=== PATIENT | female | born 1930 | race Caucasian/White ===

== ENCOUNTER 2017-07-14 23:14 | Emergency (ER) | payer MEDICARE, BC ==
[~2017-07-14] VITALS: Ht 170.2 cm; Wt 61.0 kg
[~2017-07-14 23:14] MED LIST: ALPR.25 PO; ASPI81 PO; BENI40TA30 PO; CARV3.12 PO; HYDR-2768 PO; ISOS30TA3 PO; SYNT88TA PO
[2017-07-14 23:24] VITALS: BP 118/58; PULSE 79; RESP 18; TEMP 99.1; O2SAT 97
--- NOTE | 2017-07-15 00:54 | PD ---
HPI Chief Complaint: Edema Time Seen by Provider: 23:56 Travel History International Travel<30 days: No Contact w/Intl Traveler<30days: No Traveled to known affect area: No History of Present Illness HPI 86-year-old female complains of swelling in the right leg. She underwent right hip arthroplasty revision 5 days prior. She was discharged 3 days prior. She went home feeling well however 2 days thereafter developed increasing paresthesias in bilateral lower extremities. She applied some stockings which was helpful initially however the right lower leg began to swell. She has no history of DVT. He takes no anticoagulation. Onset gradual. Timing constant. No shortness of breath. Patient reports she has a hip mobilization/bracing device with a Velcro strap just proximal knee which she loosened and reports improved symptoms thereafter. PFSH Past Medical History High Cholesterol: Yes Diminished Hearing: No Hypertension: Yes Thyroid Disease: Yes (hypothyroidism) Tetanus Vaccination: Unknown Influenza Vaccination: No Menopausal: Yes Past Surgical History Other Surgery: Yes (right hip revision) Social History Alcohol Use: No Tobacco Use: No Substance Use: No Allergies-Medications (Allergen,Severity, Reaction): Coded Allergies: No Known Allergies (Verified Adverse Reaction, Unknown, 07/14/17) Reported Meds & Prescriptions Reported Meds & Active Scripts Active Xanax 0.25 Mg Tab (Alprazolam) 0.25 Mg Tab 0.125 Mg PO TIDPRN Reported Hctz (Hydrochlorothiazide) 25 Mg Tab 25 Mg PO DAILY Aspirin 81 Mg Tab 81 Mg PO DAILY Isosorbide Mononitrate Er (Isosorbide Mononitrate) 30 Mg Tab 30 Mg PO DAILY Carvedilol 3.125 Mg Tab 3.12 Mg PO BID Synthroid (Levothyroxine Sodium) 88 Mcg Tab 75 Mcg PO DAILY Benicar (Olmesartan) 40 Mg Tab 40 Mg PO DAILY Review of Systems Except as stated in HPI: all other systems reviewed are Neg General / Constitutional: No: Fever Physical Exam Narrative GENERAL: 86-year-old female pleasant well-nourished well-developed no acute distress Vital Signs Date Time Temp Pulse Resp B/P (MAP) Pulse Ox O2 Delivery O2 Flow Rate FiO2 07/14/17 23:24 99.1 79 18 118/58 (78) 97 SKIN: Warm and dry. HEAD: Atraumatic. Normocephalic. EYES: Pupils equal and round. No scleral icterus. No injection or drainage. ENT: No nasal bleeding or discharge. Mucous membranes pink and moist. NECK: Trachea midline. No JVD. CARDIOVASCULAR: Regular rate and rhythm. RESPIRATORY: No accessory muscle use. Clear to auscultation. Breath sounds equal bilaterally. GASTROINTESTINAL: Abdomen soft, non-tender, nondistended. Hepatic and splenic margins not palpable. MUSCULOSKELETAL: Trace edema of the right lower leg below the knee. There is a hip brace present with a wraparound Velcro strap just proximal to the knee which has been loosened. NEUROLOGICAL: Awake and alert. No obvious cranial nerve deficits. Motor grossly within normal limits. Five out of 5 muscle strength in the arms and legs. Normal speech. PSYCHIATRIC: Appropriate mood and affect; insight and judgment normal. Data Data Last Documented VS Vital Signs Date Time Temp Pulse Resp B/P (MAP) Pulse Ox O2 Delivery O2 Flow Rate FiO2 07/14/17 23:24 99.1 79 18 118/58 (78) 97 Orders Orders Us Leg Venous Doppler Bilat (07/15/17 ) Ed Discharge Order (07/15/17 01:54) MDM Medical Decision Making Medical Screen Exam Complete: Yes Emergency Medical Condition: Yes Medical Record Reviewed: Yes Differential Diagnosis Cellulitis, DVT, edema from compression Narrative Course DVT studies negative The swelling is likely due to the brace. We discussed adjusting and the patient is agreeable to plan Diagnosis Primary Impression: Leg edema, right Referrals: Orthopaedic Surgeon Primary Care Physician Med/Other Pt SpecificInfo: No Change to Meds Disposition: 01 DISCHARGE HOME Condition: Stable Adrian Echeverria MD July 15, 2017 00:54
--- NOTE | 2017-07-15 01:33 | RADRPT ---
EXAM DATE/TIME: 07/15/2017 00:43 [place] COMPARISON: No previous studies available for comparison. INDICATIONS : Right leg swelling s/p right hip surgery on Saturday. MEDICAL HISTORY : Hypertension. Hypercholesterolemia. Hypothyroidism. SURGICAL HISTORY : Right total hip replacement 1992. Right hip revision in 2007 and 2017. Back surgery. ENCOUNTER: Initial ACUITY: 4 - 6 days PAIN SCORE: 2/10 LOCATION: Bilateral legs. TECHNIQUE: Venous ultrasound of the left and right leg was performed from the inguinal ligament to the proximal calf. Real-time, color Doppler and spectral tracing, compression and augmentation techniques were us ed. FINDINGS: RIGHT LEG: There is normal compressibility of the deep venous system from the inguinal region to the proximal ca lf. No echogenic clot is seen in the lumen of the common femoral, femoral, popliteal, and posterior tibial veins. There is a normal response of the venous system to proximal and distal augmentation an d respiration. LEFT LEG: There is normal compressibility of the deep venous system from the inguinal region to the proximal ca lf. No echogenic clot is seen in the lumen of the common femoral, femoral, popliteal, and posterior tibial veins. There is a normal response of the venous system to proximal and distal augmentation an d respiration. CONCLUSION: 1. Negative for deep venous thrombosis. Fernando Durham MD on July 15, 2017 at 1:30 Board Certified Radiologist. This report was verified electronically.
== END 2017-07-15 02:33 | disposition home or self-care (01) ==
LOC: NEPC 23:14
DX: R60.0 Localized edema (principal); R20.2 Paresthesia of skin; I10 Essential (primary) hypertension; E03.9 Hypothyroidism, unspecified; E78.00 Pure hypercholesterolemia, unspecified; Z98.890 Other specified postprocedural states
CPT/HCPCS: 93970; 99284

== ENCOUNTER 2018-01-12 10:20 | Observation (INO) ==
[2018-01-12 11:16] LABS: Baso % (Auto) 0.3 % (0.0-2.0); Eos # (Auto) 0.1 th/mm3 (0.0-0.4); Eos % (Auto) 1.7 % (0.0-4.0); Hemoglobin 13.4 gm/dL (11.6-15.3); Lymph # (Auto) 1.7 th/mm3 (1.0-4.8); Lymph % (Auto) 28.9 % (9.0-44.0); Mean Corpuscular HGB Conc 33.6 % (32.0-36.0); Mean Corpuscular Hemoglobin 29.7 pg (27.0-34.0); Mean Corpuscular Volume 88.4 fL (80.0-100.0); Mean Platelet Volume 7.8 fL (7.0-11.0); Mono # (Auto) 0.5 th/mm3 (0.0-0.9); Neut # (Auto) 3.6 th/mm3 (1.8-7.7); Neut % (Auto) 61.1 % (16.0-70.0); Platelet Count 254 th/mm3 (150-450); Red Blood Count 4.52 mil/mm3 (4.00-5.30); White Blood Count 5.8 th/mm3 (4.0-11.0)
[2018-01-12] MEDS ORDERED: Aspirin 325 MG Tablet PO ONE (11:17)
--- NOTE | 2018-01-12 11:32 | XR ---
EXAM DATE: 01/12/2018 11:29 AM EST AGE/SEX: 87 years / Female INDICATIONS: Cough. Congestion. CLINICAL DATA: This is the patient's initial encounter. Patient reports that signs and symptoms have been present for 3 days and indicates a pain score of 5/10. MEDICAL/SURGICAL HISTORY: None. None. COMPARISON: POI, XR CHEST PA AND LAT, 09/08/2015. . FINDINGS: A single AP view of the chest demonstrates the lungs to be symmetrically aerated without evidence of mass, infiltrate or effusion. The cardiomediastinal contours are unremarkable. Osseous structures d emonstrate chronic arthropathic changes of the right glenohumeral joint. CONCLUSION: Clear lungs. Electronically signed by: Laurent Hammer MD 01/12/2018 11:30 AM EST
[2018-01-12 11:33] LABS: Albumin 3.7 g/dL (3.4-5.0); Anion Gap 8 meq/L (5-15); Aspartate Aminotransferase 20 U/L (15-37); Blood Urea Nitrogen 14 mg/dL (7-18); Calcium 8.6 mg/dL (8.5-10.1); Carbon Dioxide 23.8 meq/L (21.0-32.0); Chloride 102 meq/L (98-107); Glomerular Filtration Rate 83 mL/min (>89); Glucose,Random 93 mg/dL (74-106); Potassium 4.4 meq/L (3.5-5.1); Sodium 134 meq/L (136-145)
[2018-01-12 11:34] LABS: Alanine Aminotransferase 24 U/L (10-53)
--- NOTE | 2018-01-12 11:34 | ED ---
HPI General Chief Complaint: Chest Pain Stated Complaint: chest pain Time Seen by Provider: 01/12/18 11:08 Source: patient and family Mode of arrival: ambulatory Limitations: no limitations History of Present Illness HPI narrative: 87-year-old female that presents to the ED for evaluation of chest pain. Patient reports that she has had chest pain since yesterday. Per patient yesterday was on and off. Per patient today got more constant which is what prompted her evaluation. Patient denies any injuries. Per patient he does follow with a warp preparer and she gets frequent follow-ups with them. Denies any urinary or bowel movement issues. No fevers chills or sweats. States having some congestion but that has been ongoing for some time. Per patient the pain when he comes is 3 out of 10 and feels more like a pressure. Currently she has no pain. Per patient when he comes it lasts for a couple of minutes and then goes away. She states that the last surgery she had was in July. She takes aspirin daily but has not taken one today. She was concerned because the pain is not getting better and seems to be becoming more frequent. Related Data Home Medications Medication Instructions Recorded Confirmed alprazolam [Xanax] 0.25 mg PO DAILY PRN 01/12/18 01/12/18 amlodipine [Norvasc] 2.5 mg PO DAILY 01/12/18 01/12/18 aspirin 81 mg PO DAILY 01/12/18 01/12/18 isosorbide mononitrate 30 mg PO DAILY 01/12/18 01/12/18 levothyroxine [Synthroid] 75 mcg PO DAILY 01/12/18 01/12/18 Allergies Allergy/AdvReac Type Severity Reaction Status Date / Time No Known Allergies Allergy Verified 01/12/18 10:30 Review of Systems ROS: all other systems reviewed are negative [facility] Medical History Medical History Anxiety (Acute) HBP (high blood pressure) (Acute) Hypothyroidism (Acute) Surgical History Surgical History History of back surgery (Acute) History of hip surgery (Acute) Social History Social History Substance History: No History of Abuse Second Hand Smoke Exposure: No Smoking Status: Never smoker How Often Do You Have a Drink Containing Alcohol: Never Recent Travel in [facility] within the Last 8 Weeks: No Recent Out of Country Travel within the Last 8 Weeks: No Immunization History Tetanus Immunization: >5 Years Exam Narrative Exam Narrative: GENERAL: Well appearing SKIN: Focused skin assessment warm/dry. HEAD: Atraumatic. Normocephalic. EYES: Pupils equal and round. No scleral icterus. No injection or drainage. ENT: No nasal bleeding or discharge. Mucous membranes pink and moist. Tongue is midline. No uvula deviation. NECK: Trachea midline. No JVD. CARDIOVASCULAR: Regular rate and rhythm. No murmur appreciated. RESPIRATORY: No accessory muscle use. Clear to auscultation. Breath sounds equal bilaterally. GASTROINTESTINAL: Abdomen soft, non-tender, nondistended. Hepatic and splenic margins not palpable. MUSCULOSKELETAL: No obvious deformities. No clubbing. No cyanosis. No edema. Full range of motion of the upper and lower extremities bilaterally. 2+ pulses bilaterally. NEUROLOGICAL: Awake and alert. No obvious cranial nerve deficits. Motor grossly within normal limits. Normal speech. PSYCHIATRIC: Appropriate mood and affect; insight and judgment normal. Course Initial Documented Vital Signs Temperature 98.0 F 01/12/18 10:24 Pulse Rate 77 01/12/18 10:24 Respiratory Rate 18 01/12/18 10:24 Blood Pressure 173/82 H 01/12/18 10:24 Pulse Oximetry 96 01/12/18 10:24 Last Documented Vital Signs Temperature 97.7 F 01/12/18 12:22 Pulse Rate 69 01/12/18 12:22 Respiratory Rate 16 01/12/18 12:22 Blood Pressure 102/60 01/12/18 12:22 Pulse Oximetry 98 01/12/18 12:22 Medical Decision Making JESUS Attestation JESUS supervised visit: Yes Attestation: I, Dr. Brower, have reviewed the advance practice practitioner's documentation and am in agreement, met with the patient face to face, made the diagnosis, and the medical decision making was done by me. *My assessment and Findings: Patient is an 87-year-old female who presented with complaint of chest pain. She states she has not had any chest pains and she was given aspirin. EKG does not show any ST segment elevation or depression at this time. Labs including initial troponin are unremarkable. She has been admitted for serial EKGs and troponins. MDM Narrative Medical decision making narrative: 87-year-old female that presents to the ED for evaluation of chest pain. Patient was properly examined and was found to have signs and symptoms consistent with appears to be concerning for ACS. Patient was given aspirin. Labs and imaging ordered. Labs and imaging showed no sign of acute disease. This time recommendations admission to chest pain center for chest pain center rule out. Patient agrees. Patient was admitted to chest pain center. Medical Screen Exam Complete: Yes Emergency Medical Condition: Yes Differential Diagnosis Differential Diagnosis: Chest pain versus atypical chest pain versus ACS versus NSTEMI Medical Records Medical records reviewed: Yes I reviewed the patient's medical records. Lab Data Lab results reviewed: Yes I reviewed the patient's lab results. Result diagrams: 01/12/18 11:00 01/12/18 11:00 Lab Results 01/12/18 01/12/18 01/12/18 Range/Units 11:00 11:00 11:00 WBC 5.8 (4.0-11.0) th/mm3 RBC 4.52 (4.00-5.30) mil/mm3 Hgb 13.4 (11.6-15.3) gm/dL Hct 40.0 (35.0-46.0) % MCV 88.4 (80.0-100.0) fL MCH 29.7 (27.0-34.0) pg MCHC 33.6 (32.0-36.0) % RDW 16.0 (11.6-17.2) % Plt Count 254 (150-450) th/mm3 MPV 7.8 (7.0-11.0) fL Neut % (Auto) 61.1 (16.0-70.0) % Lymph % (Auto) 28.9 (9.0-44.0) % Ellis % (Auto) 8.0 (0.0-8.0) % Eos % (Auto) 1.7 (0.0-4.0) % Baso % (Auto) 0.3 (0.0-2.0) % Neut # (Auto) 3.6 (1.8-7.7) th/mm3 Lymph # (Auto) 1.7 (1.0-4.8) th/mm3 Ellis # (Auto) 0.5 (0.0-0.9) th/mm3 Eos # (Auto) 0.1 (0.0-0.4) th/mm3 Baso # (Auto) 0.0 (0.0-0.2) th/mm3 WBC Differential . Differential Comment Auto diff final PT (9.8-11.6) sec INR Ratio APTT (23.4-31.7) sec Sodium 134 L (136-145) meq/L Potassium 4.4 (3.5-5.1) meq/L Chloride 102 (98-107) meq/L Carbon Dioxide 23.8 (21.0-32.0) meq/L Anion Gap 8 (5-15) meq/L BUN 14 (7-18) mg/dL Creatinine 0.67 (0.50-1.00) mg/dL Estimated GFR 83 L (>89) mL/min Random Glucose 93 (74-106) mg/dL Calcium 8.6 (8.5-10.1) mg/dL Total Bilirubin 0.4 (0.2-1.0) mg/dL AST 20 (15-37) U/L ALT 24 (10-53) U/L Alkaline Phosphatase 142 H (45-117) U/L Total Creatine Kinase 106 (26-192) U/L CK-MB (CK-2) 2.1 (0.5-3.6) ng/mL Troponin I Less than 0.02 L (0.02-0.05) ng/mL Total Protein 7.5 (6.4-8.2) g/dL Albumin 3.7 (3.4-5.0) g/dL 01/12/18 Range/Units 11:35 WBC (4.0-11.0) th/mm3 RBC (4.00-5.30) mil/mm3 Hgb (11.6-15.3) gm/dL Hct (35.0-46.0) % MCV (80.0-100.0) fL MCH (27.0-34.0) pg MCHC (32.0-36.0) % RDW (11.6-17.2) % Plt Count (150-450) th/mm3 MPV (7.0-11.0) fL Neut % (Auto) (16.0-70.0) % Lymph % (Auto) (9.0-44.0) % Ellis % (Auto) (0.0-8.0) % Eos % (Auto) (0.0-4.0) % Baso % (Auto) (0.0-2.0) % Neut # (Auto) (1.8-7.7) th/mm3 Lymph # (Auto) (1.0-4.8) th/mm3 Ellis # (Auto) (0.0-0.9) th/mm3 Eos # (Auto) (0.0-0.4) th/mm3 Baso # (Auto) (0.0-0.2) th/mm3 WBC Differential Differential Comment PT 10.7 (9.8-11.6) sec INR 1.1 Ratio APTT 28.7 (23.4-31.7) sec Sodium (136-145) meq/L Potassium (3.5-5.1) meq/L Chloride (98-107) meq/L Carbon Dioxide (21.0-32.0) meq/L Anion Gap (5-15) meq/L BUN (7-18) mg/dL Creatinine (0.50-1.00) mg/dL Estimated GFR (>89) mL/min Random Glucose (74-106) mg/dL Calcium (8.5-10.1) mg/dL Total Bilirubin (0.2-1.0) mg/dL AST (15-37) U/L ALT (10-53) U/L Alkaline Phosphatase (45-117) U/L Total Creatine Kinase (26-192) U/L CK-MB (CK-2) (0.5-3.6) ng/mL Troponin I (0.02-0.05) ng/mL Total Protein (6.4-8.2) g/dL Albumin (3.4-5.0) g/dL Imaging Data Attestation: I personally reviewed and interpreted this imaging study as follows : Radiologist's impression: Chest X-Ray 01/12/18 11:04 CONCLUSION: Clear lungs. ECG Data Attestation: I personally reviewed and interpreted this ECG as follows: Interpretation: EKG shows sinus rhythm with no sign of acute ischemia and arrhythmia read by me and attending. Discharge Plan Discharge Disposition Patient Disposition: 30 Still Patient Discharge Condition Condition: Stable Discharge Details Diagnosis: Chest pain, rule out acute myocardial infarction Physicians Team ED Provider: Flavia Brower ED Midlevel Provider: Brad Finney Primary Care Provider: UNKNOWN, Attending Provider: Ghulam Romano Status ED Status: Admitted Observation Patient
[2018-01-12 11:38] LABS: Alkaline Phosphatase 142 U/L (45-117); Total Protein 7.5 g/dL (6.4-8.2)
[2018-01-12 12:11] LABS: Activated Partial Thrombo Time 28.7 sec (23.4-31.7); INR 1.1 Ratio; Prothrombin Time 10.7 sec (9.8-11.6)
--- NOTE | 2018-01-12 12:15 | ECG ---
Date Performed: 01/12/2018 Time Performed: 10:49:34 PTAGE: 87 years EKG: Sinus rhythm WITH FIRST DEGREE AV BLOCK WITH OCCASIONAL SUPRAVENTRICULAR PREMATURE COMPLEXES POSSIBLE ANTERIOR MY OCARDIAL INFARCTION INFERIOR MYOCARDIAL INFARCTION ABNORMAL ECG No significant change from prior elec trocardiogram. DOCTOR: Bassam Plunkett Interpretating Date/Time 01/12/2018 12:14:37
[2018-01-12 12:26] LABS: Creatine Kinase 106 U/L (26-192)
[2018-01-12 12:42] LABS: Creatine Kinase MB 2.1 ng/mL (0.5-3.6)
[2018-01-12] MEDS ORDERED: ALPRAZolam 0.25 MG Tablet PO PRN (13:34)
--- NOTE | 2018-01-12 13:34 | P.HPIM ---
History of Present Illness Primary Care Physician: UNKNOWN Chief Complaint: chest pain History of Present Illness: 87-year-old female that presents to the ED for evaluation of chest pain. Patient reports that she has had chest pain since yesterday. Per patient yesterday was on and off. Per patient today got more constant which is what prompted her evaluation. Patient denies any injuries. Per patient he does follow with a construction millwright and she gets frequent follow-ups with them. Denies any urinary or bowel movement issues. No fevers chills or sweats. States having some congestion but that has been ongoing for some time. Per patient the pain when he comes is 3 out of 10 and feels more like a pressure. Currently she has no pain. Per patient when he comes it lasts for a couple of minutes and then goes away. She states that the last surgery she had was in July. She takes aspirin daily but has not taken one today. She was concerned because the pain is not getting better and seems to be becoming more frequent. Dr Yost her cardiology wants the patient to be admitted and he will be consulted Review of Systems All other systems reviewed negative except as stated in HPI PMFSH - History History Provided By: Patient - Medical History Medical History: Medical History (Last Reviewed 01/12/18 @ 13:27 by Vaishali Yoon MD) Anxiety HBP (high blood pressure) Hypothyroidism - Surgical History Surgical History: Surgical History (Last Reviewed 01/12/18 @ 13:27 by Vaishali Yoon MD) History of back surgery History of hip surgery - Family History Family History: Family History (Last Updated 01/12/18 @ 15:56 by Vaishali Yoon MD) Mother Heart problem - Social History I have reviewed the patient's Social History: Yes - Tobacco History Second Hand Smoke Exposure: No Smoking Status: Never smoker - Alcohol History How Often Do You Have a Drink Containing Alcohol: Never - Substance Use History Substance History: No History of Abuse - Travel History Recent Travel in the [place] Within the Last 8 Weeks: No Recent Travel Out of the Country Within the Last 8 Weeks: No - Immunization History Tetanus Immunization: >5 Years Medications and Allergies Allergies Allergy/AdvReac Type Severity Reaction Status Date / Time No Known Allergies Allergy Verified 01/12/18 10:30 Home Medications Medication Instructions Recorded Confirmed Type alprazolam [Xanax] 0.25 mg PO DAILY PRN 01/12/18 01/12/18 History amlodipine [Norvasc] 2.5 mg PO DAILY 01/12/18 01/12/18 History aspirin 81 mg PO DAILY 01/12/18 01/12/18 History isosorbide mononitrate 30 mg PO DAILY 01/12/18 01/12/18 History levothyroxine [Synthroid] 75 mcg PO DAILY 01/12/18 01/12/18 History Exam Vital signs: Vital Signs 01/12/18 10:24 01/12/18 11:04 01/12/18 12:22 Temperature 98.0 F 97.7 F Pulse Rate 77 64 69 Respiratory Rate 18 16 Blood Pressure 173/82 H 102/60 Pulse Oximetry 96 98 98 Intake & Output 01/11/18 01/12/18 01/12/18 18:59 06:59 18:59 Weight 63.049 kg Narrative: GENERAL: Very pleasant 87 yo female, well nourished well developed patient, appears in nad. SKIN: Warm and dry. HEAD: Atraumatic. Normocephalic. EYES: Pupils equal and round. No scleral icterus. No injection or drainage. ENT: No nasal bleeding or discharge. Mucous membranes pink and moist. NECK: Trachea midline. No JVD. CARDIOVASCULAR: Regular rate and rhythm. RESPIRATORY: No accessory muscle use. Clear to auscultation. Breath sounds equal bilaterally. GASTROINTESTINAL: Abdomen soft, non-tender, nondistended. Hepatic and splenic margins not palpable. MUSCULOSKELETAL: Extremities without clubbing, cyanosis, or edema. No obvious deformities. NEUROLOGICAL: Awake and alert. No obvious cranial nerve deficits. Motor grossly within normal limits. Five out of 5 muscle strength in the arms and legs. Normal speech. PSYCHIATRIC: Appropriate mood and affect; insight and judgment normal. Results - Labs CBC & Chem 7: 01/12/18 11:00 01/12/18 11:00 Labs: Short CBC 01/12/18 Range/Units 11:00 WBC 5.8 (4.0-11.0) th/mm3 Hgb 13.4 (11.6-15.3) gm/dL Hct 40.0 (35.0-46.0) % Plt Count 254 (150-450) th/mm3 BMP 01/12/18 11:00 Sodium 134 L Potassium 4.4 Chloride 102 Carbon Dioxide 23.8 BUN 14 Creatinine 0.67 Calcium 8.6 Cardiac Enzymes 01/12/18 01/12/18 Range/Units 11:00 11:00 Total Creatine Kinase 106 (26-192) U/L CK-MB (CK-2) 2.1 (0.5-3.6) ng/mL Troponin I Less than 0.02 L (0.02-0.05) ng/mL Liver Function 01/12/18 Range/Units 11:00 Total Bilirubin 0.4 (0.2-1.0) mg/dL AST 20 (15-37) U/L ALT 24 (10-53) U/L Alkaline Phosphatase 142 H (45-117) U/L Albumin 3.7 (3.4-5.0) g/dL - Imaging Impressions Chest X-Ray 01/12/18 11:04 CONCLUSION: Clear lungs. Caprini VTE Risk Assessment Caprini VTE Risk Assessment: Moderate/High Risk (score >= 2) Caprini Risk Assessment Model: Point Value = 1 Point Value = 2 Point Value = 3 Point Value = 5 Age 41-60 Minor surgery BMI > 25 kg/m2 Swollen legs Varicose veins or History of unexplained or recurrent spontaneous Oral contraceptives or hormone replacement Sepsis (< 1 month) Serious lung disease, including pneumonia (< 1 month) Abnormal pulmonary function Acute myocardial infarction Congestive heart failure (< 1 month) History of inflammatory bowel disease Medical patient at bed rest Age 61-74 Arthroscopic surgery Major open surgery (> 45 min) Laparoscopic surgery (> 45 min) Malignancy Confined to bed (> 72 hours) Immobilizing plaster cast Central venous access Age >= 75 History of VTE Family history of VTE Factor V Leiden Prothrombin [id number] Lupus anticoagulant Anticardiolipin antibodies Elevated serum homocysteine Heparin-induced thrombocytopenia Other congenital or acquired thrombophilia Stroke (< 1 month) Elective arthroplasty Hip, pelvis, or leg fracture Acute spinal cord injury (< 1 month) Prophylaxis Regimen: Total Risk Factor Score Risk Level Prophylaxis Regimen 0-1 Low Early ambulation 2 Moderate Order ONE of the following: *Sequential Compression Device (SCD) *Heparin 5000 units SQ BID 3-4 Higher Order ONE of the following medications: *Heparin 5000 units SQ TID *Enoxaparin/Lovenox 40 mg SQ daily (WT < 150 kg, CrCl > 30 mL/min) *Enoxaparin/Lovenox 30 mg SQ daily (WT < 150 kg, CrCl > 10-29 mL/min) *Enoxaparin/Lovenox 30 mg SQ BID (WT < 150 kg, CrCl > 30 mL/min) AND/OR *Sequential Compression Device (SCD) 5 or more Highest Order ONE of the following medications: *Heparin 5000 units SQ TID (Preferred with Epidurals) *Enoxaparin/Lovenox 40 mg SQ daily (WT < 150 kg, CrCl > 30 mL/min) *Enoxaparin/Lovenox 30 mg SQ daily (WT < 150 kg, CrCl > 10-29 mL/min) *Enoxaparin/Lovenox 30 mg SQ BID (WT < 150 kg, CrCl > 30 mL/min) AND *Sequential Compression Device (SCD) Assessment and Plan - Plan Chest pain r/o ACS. Walter also has a h/o anxiety EKG shows sinus rhythm with no sign of acute ischemia or arrhythmia. Continue ASA, start metoprolol, continue amlodipine, imdur, losartan nitroglycerin SL as need for CP First trop is neg, will trend. Will repeat EKG Will monitor on telemetry. O 2 supplement as need , keep O2 sat >94% Will check lipid panel and also LFTs Consult her cardiology Dr Priyank Cheng continue alprazolam Hypothyroidism restart Synthroid, follows with her PCP and had recent labs Restart home meds as appropriate DVT ppx scd/teds/lovenox Discussed Condition With: the patient, family at bedside, nurse, ED physician /PA
[2018-01-12] MEDS ORDERED: Acetaminophen 500 MG Tablet PO PRN (13:36)
[2018-01-12] MEDS: Enoxaparin Inj 40 MG/0.4 ML Syringe SQ SCH (14:14)
[2018-01-12] MEDS ORDERED: Metoprolol Tartrate 25 MG Tablet PO ONE (14:15)
[2018-01-12 14:43] LABS: Alanine Aminotransferase 24 U/L (10-53); Albumin 3.6 g/dL (3.4-5.0); Aspartate Aminotransferase 20 U/L (15-37); Cholesterol 189 mg/dL (120-200); Triglycerides 85 mg/dL (42-150)
[2018-01-12 14:46] LABS: Alkaline Phosphatase 137 U/L (45-117); Chol/HDL Ratio 4.53 Ratio; HDL Cholesterol 41.7 mg/dL (40.0-60.0); LDL Cholesterol,Calculated 130 mg/dL (0-99); Total Protein 7.2 g/dL (6.4-8.2)
[2018-01-12] MEDS: Famotidine 20 MG Tablet PO SCH (20:33)
[2018-01-12] MEDS: Metoprolol Tartrate 25 MG Tablet PO SCH (20:33)
[2018-01-13 04:43] LABS: Baso % (Auto) 0.5 % (0.0-2.0); Eos # (Auto) 0.1 th/mm3 (0.0-0.4); Eos % (Auto) 2.7 % (0.0-4.0); Hematocrit 38.4 % (35.0-46.0); Hemoglobin 12.9 gm/dL (11.6-15.3); Lymph # (Auto) 2.2 th/mm3 (1.0-4.8); Lymph % (Auto) 40.1 % (9.0-44.0); Mean Corpuscular HGB Conc 33.7 % (32.0-36.0); Mean Corpuscular Hemoglobin 29.2 pg (27.0-34.0); Mean Corpuscular Volume 86.7 fL (80.0-100.0); Mean Platelet Volume 7.9 fL (7.0-11.0); Mono # (Auto) 0.5 th/mm3 (0.0-0.9); Mono % (Auto) 9.6 % (0.0-8.0); Neut # (Auto) 2.6 th/mm3 (1.8-7.7); Neut % (Auto) 47.1 % (16.0-70.0); Platelet Count 245 th/mm3 (150-450); Red Blood Count 4.43 mil/mm3 (4.00-5.30); Red Cell Distribution Width 15.8 % (11.6-17.2); White Blood Count 5.5 th/mm3 (4.0-11.0)
[2018-01-13 05:00] LABS: Anion Gap 10 meq/L (5-15); Blood Urea Nitrogen 10 mg/dL (7-18); Calcium 8.7 mg/dL (8.5-10.1); Carbon Dioxide 22.7 meq/L (21.0-32.0); Chloride 104 meq/L (98-107); Glomerular Filtration Rate Greater Than 89 mL/min (>89); Glucose,Random 83 mg/dL (74-106); Sodium 137 meq/L (136-145)
[2018-01-13] MEDS ORDERED: Levothyroxine 75 MCG Tablet PO SCH (06:00)
[2018-01-13] MEDS ORDERED: Isosorbide Mononitrate 30 MG ER 24HR Tablet (Imdur) PO SCH (08:00)
[2018-01-13 08:12] VITALS: BP 131/67; RESP 18; TEMP 98.5
[2018-01-13] MEDS: Metoprolol Tartrate 25 MG Tablet PO SCH (08:46)
[2018-01-13] MEDS: Famotidine 20 MG Tablet PO SCH (08:46)
[2018-01-13] MEDS ORDERED: amLODIPine 5 MG Tablet PO SCH (09:00)
[2018-01-13 09:19] VITALS: O2SAT 97
[2018-01-13 09:22] VITALS: PULSE 52
--- NOTE | 2018-01-13 10:29 | P.PNIM ---
Subjective Interval history: Patient reports she is feeling great today. No chest pain or shortness of breath. Feels back to normal. Physical Exam Vital signs: Vital Signs 01/12/18 10:24 01/12/18 11:04 01/12/18 12:22 Temperature 98.0 F 97.7 F Pulse Rate 77 64 69 Respiratory Rate 18 16 Blood Pressure 173/82 H 102/60 Pulse Oximetry 96 98 98 01/12/18 15:18 01/12/18 15:41 01/12/18 20:22 Temperature 98.2 F Pulse Rate 55 L 63 Respiratory Rate 20 17 Blood Pressure 135/65 177/83 H Pulse Oximetry 98 95 95 01/13/18 00:00 01/13/18 00:07 01/13/18 04:00 Temperature 97.8 F 98.0 F Pulse Rate 60 50 L 54 L Respiratory Rate 16 15 Blood Pressure 125/68 141/69 H Pulse Oximetry 96 94 L 01/13/18 08:00 01/13/18 09:00 Temperature 98.5 F Pulse Rate 76 52 L Respiratory Rate 18 Blood Pressure 131/67 Pulse Oximetry 97 Intake & Output 01/12/18 01/13/18 01/13/18 18:59 06:59 18:59 Weight 63.503 kg Other: # Voids 0 3 Date of Last Bowel Movement 01/12/18 Weight On Admission 63.503 kg Narrative: GENERAL: This is a well-nourished, well-developed patient, in no apparent distress. CARDIOVASCULAR: Normal rate and regular rhythm without murmurs, gallops, or rubs. RESPIRATORY: Good respiratory efforts. Breath sounds equal and clear to auscultation bilaterally. GASTROINTESTINAL: Abdomen soft, non-tender, non-distended. Normal active bowel sounds MUSCULOSKELETAL: Extremities without cyanosis, or edema. NEURO: Alert & Oriented x4 to person, place, time, situation. Moves all ext x4 PSYCH: Appropriate mood and affect. Results - Labs CBC & Chem 7: 01/13/18 04:20 01/13/18 04:20 Laboratory Results - last 24 hr 01/12/18 01/12/18 01/12/18 11:00 11:00 11:00 WBC 5.8 RBC 4.52 Hgb 13.4 Hct 40.0 MCV 88.4 MCH 29.7 MCHC 33.6 RDW 16.0 Plt Count 254 MPV 7.8 Neut % (Auto) 61.1 Lymph % (Auto) 28.9 [place] % (Auto) 8.0 Eos % (Auto) 1.7 Baso % (Auto) 0.3 Neut # (Auto) 3.6 Lymph # (Auto) 1.7 [place] # (Auto) 0.5 Eos # (Auto) 0.1 Baso # (Auto) 0.0 WBC Differential . Differential Comment Auto diff final PT INR APTT Sodium 134 L Potassium 4.4 Chloride 102 Carbon Dioxide 23.8 Anion Gap 8 BUN 14 Creatinine 0.67 Estimated GFR 83 L Random Glucose 93 Calcium 8.6 Total Bilirubin 0.4 Direct Bilirubin Indirect Bilirubin AST 20 ALT 24 Alkaline Phosphatase 142 H Total Creatine Kinase 106 CK-MB (CK-2) 2.1 Troponin I Less than 0.02 L Total Protein 7.5 Albumin 3.7 Triglycerides Cholesterol LDL Cholesterol, Calc HDL Cholesterol Cholesterol/HDL Ratio 01/12/18 01/12/18 01/12/18 11:35 13:50 16:45 WBC RBC Hgb Hct MCV MCH MCHC RDW Plt Count MPV Neut % (Auto) Lymph % (Auto) [place] % (Auto) Eos % (Auto) Baso % (Auto) Neut # (Auto) Lymph # (Auto) [place] # (Auto) Eos # (Auto) Baso # (Auto) WBC Differential Differential Comment PT 10.7 INR 1.1 APTT 28.7 Sodium Potassium Chloride Carbon Dioxide Anion Gap BUN Creatinine Estimated GFR Random Glucose Calcium Total Bilirubin 0.5 Direct Bilirubin 0.1 Indirect Bilirubin 0.4 AST 20 ALT 24 Alkaline Phosphatase 137 H Total Creatine Kinase CK-MB (CK-2) Troponin I Less than 0.02 L Less than 0.02 L Total Protein 7.2 Albumin 3.6 Triglycerides 85 Cholesterol 189 LDL Cholesterol, Calc 130 H HDL Cholesterol 41.7 Cholesterol/HDL Ratio 4.53 01/12/18 01/12/18 01/13/18 20:45 23:13 04:20 WBC 5.5 RBC 4.43 Hgb 12.9 Hct 38.4 MCV 86.7 MCH 29.2 MCHC 33.7 RDW 15.8 Plt Count 245 MPV 7.9 Neut % (Auto) 47.1 Lymph % (Auto) 40.1 [place] % (Auto) 9.6 H Eos % (Auto) 2.7 Baso % (Auto) 0.5 Neut # (Auto) 2.6 Lymph # (Auto) 2.2 [place] # (Auto) 0.5 Eos # (Auto) 0.1 Baso # (Auto) 0.0 WBC Differential . Differential Comment Auto diff final PT INR APTT Sodium Potassium Chloride Carbon Dioxide Anion Gap BUN Creatinine Estimated GFR Random Glucose Calcium Total Bilirubin Direct Bilirubin Indirect Bilirubin AST ALT Alkaline Phosphatase Total Creatine Kinase CK-MB (CK-2) Troponin I Less than 0.02 L Less than 0.02 L Total Protein Albumin Triglycerides Cholesterol LDL Cholesterol, Calc HDL Cholesterol Cholesterol/HDL Ratio 01/13/18 04:20 WBC RBC Hgb Hct MCV MCH MCHC RDW Plt Count MPV Neut % (Auto) Lymph % (Auto) [place] % (Auto) Eos % (Auto) Baso % (Auto) Neut # (Auto) Lymph # (Auto) [place] # (Auto) Eos # (Auto) Baso # (Auto) WBC Differential Differential Comment PT INR APTT Sodium 137 Potassium 4.0 Chloride 104 Carbon Dioxide 22.7 Anion Gap 10 BUN 10 Creatinine 0.60 Estimated GFR Greater than 89 Random Glucose 83 Calcium 8.7 Total Bilirubin Direct Bilirubin Indirect Bilirubin AST ALT Alkaline Phosphatase Total Creatine Kinase CK-MB (CK-2) Troponin I Total Protein Albumin Triglycerides Cholesterol LDL Cholesterol, Calc HDL Cholesterol Cholesterol/HDL Ratio - Imaging Impressions Chest X-Ray 01/12/18 11:04 CONCLUSION: Clear lungs. Assessment and Plan - Plan 87-year-old female who presented to the hospital with complaint of chest pain. Chest pain, ACS ruled out: EKG shows first-degree AV block. No acute ST changes. Cardiac enzymes negative. -The patient's sanitary engineer Dr. Yost has been consulted who recommended outpatient follow up per his discussion with RN. - Continue home dose ASA, amlodipine, imdur, losartan added for better BP control. She was given two dose of metoprolol since arrival but became bradycardic therefore metoprolol discontinued. Patient is discharged home in good condition. Anxiety continue alprazolam Hypothyroidism restart Synthroid, follows with her PCP and had recent labs DVT ppx lovenox Discharge Planning: Discharge patient to home Condition on discharge: Improved Regular Diet as tolerated Ad Monique activity Rx written: Per med rec Follow-up with primary care physician
[2018-01-13] MEDS: Enoxaparin Inj 40 MG/0.4 ML Syringe SQ SCH (14:20)
--- NOTE | 2018-01-14 07:22 | ECG ---
Date Performed: 01/12/2018 Time Performed: 20:59:18 PTAGE: 87 years EKG: Sinus rhythm WITH FIRST DEGREE AV BLOCK WITH FREQUENT SUPRAVENTRICULAR PREMATURE COMPLEXES POSSIBLE ANTERIOR MYOC ARDIAL INFARCTION INFERIOR MYOCARDIAL INFARCTION ABNORMAL ECG Since PREVIOUS TRACING , no significant change noted DOCTOR: Kaylee Jarrett Interpretating Date/Time 01/14/2018 07:21:07
--- NOTE | 2018-01-14 07:22 | ECG ---
Date Performed: 01/12/2018 Time Performed: 23:35:04 PTAGE: 87 years EKG: SINUS BRADYCARDIA WITH FIRST DEGREE AV BLOCK WITH OCCASIONAL SUPRAVENTRICULAR PREMATURE COM PLEXES SEPTAL MYOCARDIAL INFARCTION INFERIOR MYOCARDIAL INFARCTION ABNORMAL ECG Since PREVIOUS TRACING , no significant change noted DOCTOR: Kaylee Jarrett Interpretating Date/Time 01/14/2018 07:20:25
--- NOTE | 2018-01-14 07:24 | ECG ---
Date Performed: 01/12/2018 Time Performed: 15:55:19 PTAGE: 87 years EKG: SINUS BRADYCARDIA WITH FIRST DEGREE AV BLOCK POSSIBLE ANTERIOR MYOCARDIAL INFARCTION INFERI OR MYOCARDIAL INFARCTION ABNORMAL ECG Since PREVIOUS TRACING , no significant change noted PREVIOUS TRACIN01/12/2018 14.02 DOCTOR: Kaylee Jarrett Interpretating Date/Time 01/14/2018 07:22:52
--- NOTE | 2018-01-14 07:24 | ECG ---
Date Performed: 01/12/2018 Time Performed: 14:02:07 PTAGE: 87 years EKG: Sinus rhythm POSSIBLE ANTERIOR MYOCARDIAL INFARCTION INFERIOR MYOCARDIAL INFARCTION ABNORMAL ECG Since PREVIOUS TRACING , no significant change noted PREVIOUS TRACIN01/12/2018 10.49 DOCTOR: Kaylee Jarrett Interpretating Date/Time 01/14/2018 07:23:06
== END 2018-01-13 16:02 | disposition home or self-care (01) ==
LOC: NEPE 10:20 → NEDA 10:20 → NEPFCDU 14:59
PROVIDERS: ADMIT Family Medicine; ATTEND Family Medicine